=== PATIENT | male | born 1960 | race Caucasian/White ===

== ENCOUNTER 2018-09-21 02:27 | Emergency (ER) | payer OTHER ==
[~2018-09-21] VITALS: Ht 175.3 cm; Wt 72.7 kg
[2018-09-21 02:31] VITALS: BP 134/67; PULSE 77; RESP 16; Ht 175.3 cm; Wt 72.7 kg
[2018-09-21] MEDS ORDERED: HYDROmorphONE 0.5 MG/0.5 ML SYG IM STA ×2 (03:02→03:58)
[2018-09-21] MEDS ORDERED: ONDANSETRON (ODT) 4 MG TAB ODT STA (03:02)
[2018-09-21] MEDS ORDERED: KETOROLAC 60 MG INJ IM STA (03:58)
[2018-09-21] MEDS ORDERED: CYCL10TA7 PO (05:29)
[2018-09-21] MEDS ORDERED: IBUP-1542 PO (05:29)
[2018-09-21] MEDS ORDERED: HYDR-4011 PO (05:29)
--- NOTE | 2018-09-21 05:32 | ERD ---
ER Documentation Chief Complaint Chief Complaint BIB ra 889 C/O BACK PAIN DENIES TRAUMA OR FALL HPI 58-year-old male presents with back pain starting tonight. Denies any history of trauma or inciting events. The pain is severe and radiates down his left leg. He said intermittent low back pain but none this severe. Denies any bowel or bladder incontinence, fevers, urinary complaints. ROS All systems reviewed and are negative except as per history of present illness. Medications Home Meds Active Scripts Cyclobenzaprine Hcl* (Cyclobenzaprine Hcl*) 10 Mg Tablet, 10 MG PO TID, #15 TAB Prov:CHIKA LEWIS MD 09/21/18 Ibuprofen* (Motrin*) 600 Mg Tab, 600 MG PO Q6, #20 TAB Prov:CHIKA LEWIS MD 09/21/18 Hydrocodone/Acetaminophen ([place] 5-325 Tablet) 1 Each Tablet, 1 TAB PO Q6H PRN for PAIN, #14 TAB Prov:CHIKA LEWIS MD 09/21/18 Allergies Allergies: Coded Allergies: No Known Allergy (Unverified , 09/21/18) PMhx/Soc Medical and Surgical Hx: pt denies Medical Hx, pt denies Surgical Hx Hx Alcohol Use: Yes (occassional) Hx Substance Use: No Hx Tobacco Use: Yes Smoking Status: Current some day smoker FmHx Family History: No diabetes, No coronary disease, No other Physical Exam Vitals Vital Signs Date Temp Pulse Resp B/P (MAP) Pulse Ox O2 O2 Flow FiO2 Time Delivery Rate 09/21/18 98.0 77 16 134/67 100 02:31 (89) Physical Exam Const: No acute distress Head: Atraumatic Eyes: Normal Conjunctiva ENT: Normal External Ears, Nose and Mouth. Neck: Full range of motion. No meningismus. Resp: Clear to auscultation bilaterally Cardio: Regular rate and rhythm, no murmurs Abd: Soft, non tender, non distended. Normal bowel sounds Skin: No petechiae or rashes Back: No midline or flank tenderness tenderness left L4-5 paraspinous area positive straight leg raise. Ext: No cyanosis, or edema Neur: Awake and alert Psych: Normal Mood and Affect Results 24 hrs Current Medications Medications Dose Sig/Lester Start Time Status Last (Trade) Ordered Route PRN Stop Time Admin Dose Reason Admin 1 mg ONCE STAT 09/21/18 DC 09/21/18 Hydromorphone IM 03:02 09/21/18 03:38 HCl 03:04 (Dilaudid) Ondansetron 8 mg ONCE STAT 09/21/18 DC 09/21/18 HCl (Zofran ODT 03:02 09/21/18 03:33 Odt) 03:04 Ketorolac 60 mg ONCE STAT 09/21/18 DC Tromethamine IM 03:58 09/21/18 (Toradol) 03:59 1 mg ONCE STAT 09/21/18 DC Hydromorphone IM 03:58 09/21/18 HCl 03:59 (Dilaudid) Procedures/MDM She was given Dilaudid 1 mg IV, Zofran 8 mg by mouth. Patient had improvement in pain. CT shows multilevel degenerative disc disease without findings of cauda equina syndrome, fracture, dislocation, additional acute abnormalities. Patient presents with signs and symptoms of acute sciatica without evidence of cauda equina syndrome, epidural abscess, ischemia, deficits. We discharged home a short course of [place], Flexeril, ibuprofen. Cures review shows no significant opiate history. The patient was stable with no new complaints during the ER course. Clinically, there is no current evidence to suggest meningitis, sepsis, acute abdomen, pneumonia, stroke, acute coronary syndrome, pulmonary embolism, aortic dissection or any other emergent condition appearing to require further evaluation or hospitalization. Patient counseled regarding my diagnostic impression and care plan. Prior to discharge all questions answered. Pt agrees with treatment plan and understands strict return precautions. Pt is instructed to follow up with primary care provider within 24-48 hours. Precautionary instructions provided including instructions to return to the ER if not improving or for any worsening or changing symptoms or concerns. Was advised on exercises and primary care and possible specialty follow-up for persistent or worsening symptoms. Departure Diagnosis: Primary Impression: Sciatica of left side Additional Impression: Back pain Back pain location: low back pain Chronicity: acute Back pain laterality: left Sciatica presence: with sciatica Sciatica laterality: sciatica of left side Qualified Codes: M54.42 - Lumbago with sciatica, left side Condition: Stable Patient Instructions: Back Exercises, Lumbar, Back Pain W/ Sciatica Additional Instructions: CT shows degenerative disc disease. Recommend exercise, medication and recommendations for follow-up with orthopedics and specialist for persistent pain. Recheck otherwise for new or worsening symptoms. CHIKA LEWIS MD Sep 21, 2018 05:32
== END 2018-09-21 05:40 | disposition home or self-care (01) ==
LOC: FTE 02:27
DX: M54.42 Lumbago with sciatica, left side (principal); F17.210 Nicotine dependence, cigarettes, uncomplicated
CPT/HCPCS: 72131; 96372; 99285; J1170